=== PATIENT | male | born 1945 | race Caucasian/White ===

== ENCOUNTER 2017-07-15 10:11 | Outpatient (CLI) | payer MEDICARE, OTHER ==
[2017-07-15 12:03] LABS: Hemoglobin 15.8 g/dL (14.0-18.0); Mean Corpuscular HGB CONC 33.7 g/dL (32.0-36.0); Mean Corpuscular Hemoglobin 30.9 pg (27.0-31.0); Mean Corpuscular Volume 91.7 fl (80.0-94.0); Mean Platelet Volume 7.3 fL (7.4-10.4); Platelet Count 245 thou/uL (130-400); RBC Distribution Width 11.9 % (11.5-14.5); Red Blood Cell (RBC) Count 5.11 mill/uL (4.70-6.10); White Blood Cell (WBC) Count 8.6 thou/uL (4.8-10.8)
[2017-07-15 12:18] LABS: Anion Gap 13 mmol/L (10-20); BUN (Urea Nitrogen) 12 mg/dL (8.4-25.7); Calc. Creatinine Clearance 0 mL/min (70-130); Calcium 9.7 mg/dL (7.8-10.44); Carbon Dioxide 26 mmol/L (23-31); Chloride 103 mmol/L (98-107); Estimated GFR-MDRD Greater than 90; Glucose 92 mg/dL (80-115); Potassium 4.2 mmol/L (3.5-5.1); Sodium 138 mmol/L (136-145)
== END 2017-07-15 10:12 | disposition home or self-care (01) ==
LOC: LABBT 10:11
PROVIDERS: ATTEND Orthopaedic Surgery
DX: Z01.818 Encounter for other preprocedural examination (principal); M75.121 Complete rotator cuff tear or rupture of right shoulder, not specified as traumatic
CPT/HCPCS: 80048; 85027; 93005; 93010

== ENCOUNTER 2017-07-17 07:44 | Day surgery (SDC) | payer MEDICARE, OTHER ==
[2017-07-15 10:26] VITALS: BMI 28.0
--- NOTE | 2017-07-16 09:04 | HP ---
HISTORY OF PRESENT ILLNESS: The patient is a 71-year-old right handed male who injured his right terra ulder slipping on the ice approximately 3-4 weeks ago. He has had persistent pain and weakness and d ifficulties in day-to-day activities. He denies previous problems with his shoulder, but has been ac tive most of his life. PAST MEDICAL HISTORY: The patient has history of hypertension, high cholesterol, reflux, sinusitis. CURRENT MEDICATIONS: Hydrochlorothiazide, ramipril, atorvastatin, omeprazole, Zyrtec, Flonase, Melox icam, gabapentin. ALLERGIES: He has no known allergies. FAMILY HISTORY/SOCIAL HISTORY/REVIEW OF SYSTEMS: Otherwise unremarkable. PHYSICAL EXAMINATION: GENERAL: Reveals a healthy male. HEENT: Unremarkable. NECK: Supple. CHEST: Clear. HEART: Regular rate and rhythm. ABDOMEN: Soft, nontender. RECTAL/GENITAL: Deferred. EXTREMITIES: Pertinent findings of the right shoulder. There is slight swelling. There is resolvin g bruising of his shoulder and distal arm area. There is tenderness over the subacromial space. The re is 160 degrees of passive forward flexion with only approximately 30 degrees of active forward fle xion and has a positive drop arm test. There is weakness of external rotation, abduction. There is no instability. Neurovascular exam is otherwise intact. LABORATORY AND X-RAY FINDINGS: X-rays of the right shoulder reveal DJD of the AC joint with some sub acromial spurring and mild DJD of the glenohumeral joint. MRI scan of the right shoulder reveals a f ull thickness retracted tear of the rotator cuff and medial subluxation of the biceps tendon. IMPRESSION: Rotator cuff tear right shoulder and subluxation of the biceps tendon. PLAN: Open acromioplasty and rotator cuff tear with possible biceps tenodesis. The nature of the polanco rgery, length of recovery, and potential complications such as infection, loss of motion, incomplete relief, inability to repair the tear, rupture of the repair, neurovascular injury and possible need f or additional or repeat surgery have been discussed in detail.
[2017-07-17] MEDS ORDERED: Ropivacaine 0.2% HCl/PF 20 ML ONE (08:58)
[2017-07-17] MEDS ORDERED: Midazolam HCl 2 mg/2 ml Vial ONE (08:58)
[2017-07-17] MEDS ORDERED: Fentanyl 100 MCG/2 ML VIAL ONE ×2 (08:58→10:17)
[2017-07-17] MEDS ORDERED: CEFAZOLIN/Water 2 GM/20 ML SYRINGE ONE (09:08)
[2017-07-17] MEDS ORDERED: Ondansetron HCl/PF 4 MG/2 ML Vial IVP PRN (10:22)
[2017-07-17] MEDS ORDERED: HYDROcodone/Acetaminophen 5/325 mg Tablet PO PRN ×2 (10:22)
[2017-07-17] MEDS ORDERED: Zolpidem Tartrate 5 MG TAB PO PRN (10:22)
[2017-07-17] MEDS ORDERED: traMADol HCl 50 MG TAB PO PRN ×2 (10:22)
[2017-07-17] MEDS ORDERED: Ketorolac Tromethamine 30 MG/ML VIAL IVP PRN (10:22)
[2017-07-17] MEDS ORDERED: Ropivacaine 0.2% 550 ML 550 ML NERVE BLCK SCH (10:22)
[2017-07-17] MEDS ORDERED: Promethazine HCl 25 MG/ML VIAL IM PRN (10:22)
[2017-07-17] MEDS ORDERED: Fentanyl 100 MCG/2 ML VIAL IV PRN (10:23)
--- NOTE | 2017-07-17 13:59 | OP ---
DATE OF PROCEDURE: 07/17/2017 SURGEON: Boni Caldwell M.D. BAKERY CLERK: Lynette Key PA-C. ANESTHESIA: General plus scalene block. PREOPERATIVE DIAGNOSES: Rotator cuff tear, right shoulder with subluxation of biceps tendon. POSTOPERATIVE DIAGNOSES: Rotator cuff tear, right shoulder with subluxation of biceps tendon (massiv e tear). PROCEDURES PERFORMED: Open acromioplasty, repair of massive rotator cuff tear, right shoulder, and b iceps tenodesis. OPERATIVE FINDINGS: Examination under anesthesia revealed the shoulder to be stable. In surgery, th ere was a moderate sized subacromial spurring and impingement. There was a massive tear of the rotat or cuff involving the rotator cuff tendons including the upper half of the subscapularis with medial subluxation of the biceps tendon. Tendon was moderately friable and appeared to be degenerative in n ature prior to his recent injury. Acceptable repair was accomplished. NARRATIVE REPORT: After satisfactory anesthesia was induced in the semi-santamaria chair position, the p atient was prepped and draped in the routine manner. The shoulder was approached through an anterola teral incision centered off the anterolateral edge of the acromion process, carried down to subcutane ous tissues. Bleeding points were controlled with Bovie cautery. Deltoid raphae was split in line w ith the skin incision and the deltotrapezial fascia was reflected in an L-shape fashion from the acro mion process. The deltoid was retracted medially. Coracoacromial ligament was divided. Partial sub acromial bursectomy was performed. The acromioplasty was performed by excising the anterior edge of the acromion, flushed the distal clavicle with an osteotome and then the undersurface was beveled wit h a curved osteotome and smoothed with a rasp. Using sharp and blunt dissection, the above pathology was noted. The ends of the rotator cuff were identified and freshened with sharp dissection. A por tion of the greater tuberosity was rongeured to find a bony bed. The biceps tendon was then tagged w ith a suture and sharply detached from the glenoid. The tendon was then sized and a 7 mm tunnel was then drilled into the proximal edge of the bicipital groove and tenodesis of the biceps was then acco mplished using the [employer] SwiveLock tenodesis system. This appeared to give good stable repair. Th e excess tendon was excised. The rotator cuff was then repaired. This required 4 double arm suture anchors. After placing the sutures, they were then tied from anterior to posteri or. This appeared to give satisfactory stable repair and it was reinforced with a double row techniq ue using 3 SwiveLock anchors in the lateral aspect of the humeral shaft. Following this was a stable repair and good range of motion. The wound was copiously irrigated. The deltoid was repaired back to bone with interrupted #1 Ethibond. The deltoid raphae was closed with interrupted #1 Vicryl. Subc utaneous tissue closed with interrupted 2-0 Vicryl and the skin closed with a staple gun. Sterile dr yaw was applied and the patient immobilized in an arm sling. He was awakened and taken to recover y room in stable condition. There were no apparent intraoperative complications. The estimated bloo d loss was less than 100 mL. He will be discharged home in satisfactory condition. He was instructed in ice, elevation, and given written wound care instructions and a prescription for [place] 10 for pain, 100 tablets. He was instr ucted home program of gentle pendulum exercises and gentle isometrics of his biceps and triceps. He will be rechecked in my office in 2 weeks or sooner if there are any problems prior to that time.
[2017-07-17] MEDS ORDERED: Promethazine HCl 25 MG/ML VIAL ONE (14:35)
[2017-07-17] MEDS ORDERED: Ropivacaine 0.5% HCl/PF (150 MG/30 ML VIAL) ONE (15:47)
[2017-07-17] MEDS ORDERED: HYDROcodone/Acetaminophen 5/325 mg Tablet ONE ×2 (15:48→15:49)
[2017-07-17] MEDS ORDERED: Glycopyrrolate 0.2 MG/ML 5 ML SYRINGE ONE (16:28)
[2017-07-17] MEDS ORDERED: Lidocaine 1% PF 5 ML VIAL ONE (16:28)
[2017-07-17] MEDS ORDERED: PROPOFOL 200 MG/20 ML VIAL ONE (16:28)
[2017-07-17] MEDS ORDERED: Ondansetron HCl/PF 4 MG/2 ML Vial ONE (16:28)
[2017-07-17] MEDS ORDERED: PHENYLEPHRINE-NS 100 MCG/ML 10 ML SYRINGE ONE (16:28)
== END 2017-07-17 16:03 | disposition home or self-care (01) ==
LOC: SDC 07:44
PROVIDERS: ATTEND Orthopaedic Surgery
PROC: 0LQ10ZZ Repair Right Shoulder Tendon, Open Approach (ICD-10-PCS; principal; 2017-07-17)
PROC: 0LS30ZZ Reposition Right Upper Arm Tendon, Open Approach (ICD-10-PCS; 2017-07-17)
PROC: 0RHJ04Z Insertion of Internal Fixation Device into Right Shoulder Joint, Open Approach (ICD-10-PCS; 2017-07-17)
PROC: 0RNJ0ZZ Release Right Shoulder Joint, Open Approach (ICD-10-PCS; 2017-07-17)
DX: M75.101 Unspecified rotator cuff tear or rupture of right shoulder, not specified as traumatic (principal); M75.41 Impingement syndrome of right shoulder; S46.111A Strain of muscle, fascia and tendon of long head of biceps, right arm, initial encounter; I10 Essential (primary) hypertension; E78.00 Pure hypercholesterolemia, unspecified; K21.9 Gastro-esophageal reflux disease without esophagitis; J32.9 Chronic sinusitis, unspecified; M19.90 Unspecified osteoarthritis, unspecified site; Z85.828 Personal history of other malignant neoplasm of skin; Z79.51 Long term (current) use of inhaled steroids; Z79.1 Long term (current) use of non-steroidal anti-inflammatories (NSAID); Z79.899 Other long term (current) drug therapy; Z98.890 Other specified postprocedural states
CPT/HCPCS: 23130; 23412; 23430; 96374; 97139; A4306; C1713 ×2; G8984; G8985; G8986; J2001; J2250; J2405; J2550; J2704; J2795; J3010